=== PATIENT | male | born 1965 | race Caucasian/White ===

== ENCOUNTER 2019-09-08 11:50 | Outpatient (CLI) | payer OTHER ==
[2014-10-11 18:30] VITALS: BP 161/80
[2019-09-08 12:10] LABS: BASOPHILS % 0.5 % (0.0-1.5); NEUTROPHILS # 4.2 # k/uL (1.4-7.7)
[2019-09-08 12:35] LABS: eGFR (Non-African) > 60
--- NOTE | 2019-09-08 15:41 | Diagnostic Imaging Report ---
PATIENT MR#: [id number] PATIENT PATIENT NAME: SHAMAR ELIZABETH DATE OF : 1965 REFERRING PHYSICIAN: Rafat Narayan EXAM DATE: 09/08/2019 ACCESSION NUMBER: [id number] EXAM DESCRIPTION: C SPINE 2 OR 3 VIEWS HISTORY: CHRONIC NECK PAIN COMPARISON: No relevant comparison is available at the time of interpretation. C-SPINE XRAY, 3 Views: Vertebral bodies: No compression deformities. Disc spaces: Mild degenerative disc narrowing at C4-5 and C6-7. Moderate degenerative disc narrowing at C5-6. Alignment: Straightening of the normal cervical lordosis without listhesis. The head is mildly tilted to the right. IMPRESSION: 1. Mild rightward head tilt and straightening of the normal cervical lordosis may indicate paraspinal muscle spasm. 2. Multilevel degenerative disc disease, moderate at C5-6. Read by: Dr. Néstor Bowles Transcribed by: Néstro Bowles Transcribed Date: 09/08/2019 3:41:03 PM Electronically signed by: Dr. Néstor Bowles Date signed: 09/08/2019 3:41:03 PM
--- NOTE | 2019-09-08 16:44 | Diagnostic Imaging Report ---
PATIENT MR#: [id number] PATIENT PATIENT NAME: SHAMAR ELIZABETH DATE OF : 1965 REFERRING PHYSICIAN: Rafat Narayan EXAM DATE: 09/08/2019 ACCESSION NUMBER: [id number] EXAM DESCRIPTION: L SPINE 2 OR 3 VIEWS CLINICAL HISTORY: LOW BACK PAIN WITH BILATERAL SCIATICA COMPARISON: No relevant comparison is available at the time of interpretation. L-SPINE XRAY, 3 Views: Vertebral bodies: Mild chronic loss of height of T12 and L1. Disc spaces: Moderate degenerative disc narrowing at T12-L1 and L5-S1. Mild disc narrowing at L3-4. Alignment: Mild straightening of the normal lumbar lordosis without listhesis. IMPRESSION: 1. Mild chronic loss of height of T12-L1. 2. Degenerative disc disease, moderate at T12-L1 and L5-S1. 3. Mild straightening of the normal lumbar lordosis. Read by: Dr. Néstor Bolwes Transcribed by: Néstor Bowles Transcribed Date: 09/08/2019 4:43:27 PM Electronically signed by: Dr. Néstor Bowles Date signed: 09/08/2019 4:43:27 PM
== END 2019-09-08 11:55 ==
LOC: LAB 11:50
PROVIDERS: ATTEND Family Medicine
DX: I10 Essential (primary) hypertension (principal); G89.29 Other chronic pain; M54.2 Cervicalgia; M54.41 Lumbago with sciatica, right side; M54.42 Lumbago with sciatica, left side
CPT/HCPCS: 36415; 72040; 72100; 80053; 85025